=== PATIENT | female | born 1970 | race Two or more races ===

== ENCOUNTER 2020-06-20 13:47 | Outpatient (CLI) | payer OTHER | END 2020-06-20 15:32 | disposition home or self-care (01) | LOC: MAMO-SONO 13:47 | PROVIDERS: ATTEND Obstetrics & Gynecology | DX: N60.11 Diffuse cystic mastopathy of right breast (principal); N60.12 Diffuse cystic mastopathy of left breast ==

== ENCOUNTER 2021-05-28 10:55 | Outpatient (CLI) | payer OTHER | END 2021-05-28 10:58 | disposition home or self-care (01) | LOC: MAMO-SONO 10:55 | PROVIDERS: ATTEND Family Medicine | DX: N60.19 Diffuse cystic mastopathy of unspecified breast (principal) ==

== ENCOUNTER 2021-09-06 11:26 | Emergency (ER) | payer OTHER ==
[~2021-09-06] VITALS: Ht 154.9 cm; Wt 67.1 kg
[2021-09-06] MEDS ORDERED: AMILORIDE HCL-1 EACH PO (11:46)
[2021-09-06] MEDS ORDERED: COZAAR25 MG PO (11:47)
[2021-09-06] MEDS ORDERED: ENDOMETRIN100 MG VAG (11:47)
== END 2021-09-06 15:53 ==
LOC: ER 11:26
DX: J06.9 Acute upper respiratory infection, unspecified (principal); R53.81 Other malaise; E03.9 Hypothyroidism, unspecified; I10 Essential (primary) hypertension

== ENCOUNTER 2022-06-16 10:50 | Outpatient (CLI) | payer OTHER ==
[~2022-06-16 10:50] MED LIST: AMILORIDE HCL-1 EACH PO; COZAAR25 MG PO; ENDOMETRIN100 MG VAG
== END 2022-06-16 13:50 | disposition home or self-care (01) ==
LOC: MAMO-SONO 10:50
DX: N60.11 Diffuse cystic mastopathy of right breast (principal); N60.12 Diffuse cystic mastopathy of left breast

== ENCOUNTER 2023-06-09 10:05 | Outpatient (CLI) | payer OTHER | END 2023-06-09 10:10 | disposition home or self-care (01) | LOC: MAMO-SONO 10:05 | PROVIDERS: ATTEND Obstetrics & Gynecology | DX: N60.11 Diffuse cystic mastopathy of right breast (principal); N60.12 Diffuse cystic mastopathy of left breast; Z12.31 Encounter for screening mammogram for malignant neoplasm of breast ==

== ENCOUNTER 2024-05-29 08:37 | Outpatient (CLI) | payer OTHER | END 2024-05-29 08:57 | disposition home or self-care (01) | LOC: MAMO-SONO 08:37 | PROVIDERS: ATTEND Obstetrics & Gynecology | DX: M25.512 Pain in left shoulder (principal); M25.552 Pain in left hip; M16.12 Unilateral primary osteoarthritis, left hip; N60.11 Diffuse cystic mastopathy of right breast; N60.12 Diffuse cystic mastopathy of left breast ==

== ENCOUNTER → 2024-11-17 | Outpatient (CLI) | payer OTHER | END | disposition home or self-care (01) | LOC: NUCLEAR 09:00 | PROVIDERS: ATTEND Thoracic Surgery (Cardiothoracic Vascular Surgery) | DX: I73.9 Peripheral vascular disease, unspecified (principal) ==